=== PATIENT | male | born 1965 | race Caucasian/White ===

== ENCOUNTER 2020-09-03 11:32 | Emergency (ER) | payer OTHER ==
[~2020-09-03] VITALS: Ht 167.6 cm; Wt 90.7 kg
[2020-09-03] MEDS ORDERED: LORAZEPAM INJ 2 MG/ML VIAL IM ONE (12:00)
[2020-09-03] MEDS ORDERED: OLANZAPINE 10 MG VIAL IM ONE ×6 (12:00→23:50)
[2020-09-03] MEDS ORDERED: LORAZEPAM INJ 2 MG/ML VIAL ONE (12:04)
--- NOTE | 2020-09-03 12:07 | NUR ---
GIL AND [employer] ON RESTRAINTS FROM [facility]. TO ER BED 14. AGITATED, TALKING IN NON SENSE. BROUGHT IN FOR DANGER OT OTHER AND ON 5150 HOLD D/T PT THREW A CHAIR AT THE STAFF WHERE HE IS RESIDING. HOLD IS WRITTEN ON 09/03/20 @ 1130 BY [employer]. PT IS KEPT ON RESTRAINT FOR SAFETY. WITH SITTER AT BEDSIDE. ALL HAZARDS WERE REMOVED FROM THE AREA OF THE PT. WAS AT THE BEDSIDE FOR EVAL.
[2020-09-03 12:34] LABS: BASOPHILS # (AUTO) 0.1 /CMM (0.0-0.2); BASOPHILS % (AUTO) 1.1 % (0.0-2.0); EOSINOPHILS % (AUTO) 1.7 % (0.0-6.0); HEMATOCRIT 41 % (39-51); HEMOGLOBIN 13.7 g/dL (13.5-17.5); LYMPHOCYTES # (AUTO) 1.9 /CMM (0.8-4.8); LYMPHOCYTES % (AUTO) 26.3 % (20.0-44.0); MEAN CORPUSCULAR HGB CONC 34 g/dl (31.0-36.0); MEAN CORPUSCULAR VOLUME 91 fL (80-96); MONOCYTES # (AUTO) 0.5 /CMM (0.1-1.30); MONOCYTES % (AUTO) 7.2 % (2.0-12.0); NEUTROPHILS # (AUTO) 4.5 /CMM (1.8-8.9); NEUTROPHILS % (AUTO) 63.7 % (43.0-81.0); PLATELET COUNT (AUTO) 541 /CMM (150-450); RED BLOOD CELL COUNT(AUTO) 4.47 MIL/uL (4.5-6.0); WHITE BLOOD COUNT (AUTO) 7.1 K/uL (4.3-11.0)
[2020-09-03 12:45] LABS: CALCIUM, SERUM 9.3 mg/dL (8.5-10.1); CARBON DIOXIDE 25 mmol/L (21-32); CHLORIDE 99 mmol/L (98-107); CREATININE 0.8 mg/dL (0.6-1.3); GLUCOSE 99 mg/dL (74-106); POTASSIUM 4.1 mmol/L (3.5-5.1); SODIUM SERUM 134 mmol/L (136-145); UREA NITROGEN, BLOOD 9 mg/dL (7-18)
[2020-09-03 12:51] LABS: ACETAMINOPHEN 0 ug/ml (10-30); ALANINE AMINOTRANSFERASE 41 U/L (12-78); ALBUMIN 3.4 g/dL (3.4-5.0); ALCOHOL, BLOOD < 3 mg/dL (0-0); ALKALINE PHOSPHATASE 110 U/L (46-116); ASPARTATE AMINOTRANSFERASE 40 U/L (15-37); BILIRUBIN,DIRECT 0.1 mg/dL (0.0-0.2); BILIRUBIN,TOTAL 0.2 mg/dL (0.2-1.0); TOTAL PROTEIN, SERUM 7.8 g/dL (6.4-8.2)
[2020-09-03 15:38] LABS: BILIRUBIN,URINE Negative (NEGATIVE); COLOR,URINE YELLOW (YELLOW); LEUKOCYTE ESTERASE ,URINE Negative (NEGATIVE); NITRITE, URINE Negative (NEGATIVE); PH,URINE 7.5 (5.0-8.0); PROTEIN,URINE Negative (NEGATIVE); UGLUCOSE Negative (NEGATIVE); UROBILINOGEN,URINE 0.2 EU/dL (0.2)
--- NOTE | 2020-09-03 17:13 | NUR ---
CALLED LAB ABOUT RESULT OF COVID
--- NOTE | 2020-09-03 17:14 | NUR ---
RECEIVED RESULT FROM MAIN LAB: RAPID COVID NEGATIVE
[2020-09-03 18:31] LABS: BACTERIA,URINE Rare /HPF (None Seen); SQUAMOUS EPITHELIAL CELL,UR 0-2 /HPF (None Seen); WBC,URINE 0-2 /HPF (0-3)
--- NOTE | 2020-09-03 18:41 | NUR ---
FAMARTINEZ CHEN AT [facility] AND HOLD.
--- NOTE | 2020-09-03 21:02 | NUR ---
PT RESTING COMFORTABLY. REMAINS ON MONITOR. VSS.
--- NOTE | 2020-09-03 22:40 | NUR ---
PT NOW SLEEPING COMFORTABLY IN BED. VITAL SIGNS STABLE. PER VERBAL MD ORDER, WILL HOLD ZYPREXA 10MG IM AT THIS TIME
--- NOTE | 2020-09-04 04:22 | NUR ---
PT AWAKE IN BED, PROVIDED WITH BLANKETS.
--- NOTE | 2020-09-04 05:34 | NUR ---
PT AWAKE. TALKING TO HIMSELF AND INTERMITTENTLY YELLING INCOHERENTLY. MD AWARE. PT STILL ON MONITOR, WILL CONTINUE TO MONITOR
[2020-09-04] MEDS ORDERED: LORAZEPAM INJ 2 MG/ML VIAL ONE ×2 (05:36→10:30)
[2020-09-04] MEDS ORDERED: LORAZEPAM INJ 2 MG/ML VIAL IM ONE ×2 (06:00→10:30)
--- NOTE | 2020-09-04 06:41 | NUR ---
PER PRASANTH PT ACCEPTED TO [facility]. WILL CALL BACK WITH FURTHER INFORMATION.
--- NOTE | 2020-09-04 10:08 | NUR ---
RECIEVED A CALL FROM KILLIAN FROM [facility]. AT THE MOMENT STILL WAITING FOR BED OPENINGS SO WE SHOULD RECIEVE A CALL BACK IN 45 TO 1 HOUR. CALL BACK NUMBER. [phone].
[2020-09-04] MEDS ORDERED: diphenhydrAMINE HCL 50 MG/ML VIAL ONE (10:29)
[2020-09-04] MEDS ORDERED: HALOPERIDOL LACTATE INJ 5 MG/ML VIAL ONE (10:30)
[2020-09-04] MEDS ORDERED: HALOPERIDOL LACTATE INJ 5 MG/ML VIAL IM ONE (10:30)
[2020-09-04] MEDS ORDERED: diphenhydrAMINE HCL 50 MG/ML VIAL IM ONE (10:30)
--- NOTE | 2020-09-04 10:41 | NUR ---
PT SCREAMING & VERY AGITATED. MEDICATED PER ERMD ORDER. WILL CONT TO MONITOR.
[2020-09-04 11:15] VITALS: BP 127/69
--- NOTE | 2020-09-04 11:16 | NUR ---
PT ASLEEP, EASILY AWAKEN BY VERBAL STIMULI & WILL GO BACK TO SLEEP. RR EVEN & UNLABORED. NAD NOTED AT THIS TIME & WILL CONT TO MONITOR.
--- NOTE | 2020-09-04 11:32 | NUR ---
PATIENT IS ACCEPTED BY DR. TUCKER, WILL GO TO [facility] # FOR REPORT [phone].
--- NOTE | 2020-09-04 11:56 | NUR ---
[facility] ETA 1230
--- NOTE | 2020-09-04 12:52 | NUR ---
REPORT GIVEN TO JIMMY REICH FROM [facility].
--- NOTE | 2020-09-04 12:55 | NUR ---
REPORT GIVEN TO NAOMIE FOR SHY. PATIENT TRANSFERED TO [facility].
== END 2020-09-04 13:04 ==
LOC: ER 11:39
DX: F23 Brief psychotic disorder (principal); R45.1 Restlessness and agitation; I10 Essential (primary) hypertension; J44.9 Chronic obstructive pulmonary disease, unspecified; N40.0 Benign prostatic hyperplasia without lower urinary tract symptoms; M15.9 Polyosteoarthritis, unspecified; Z20.822 Contact with and (suspected) exposure to COVID-19
CPT/HCPCS: 36415; 80048; 80076; 80299; 80307; 80320; 81001; 85025; 87426; 96372 ×3; 99291; C9803; J1200; J1630; J2060 ×3; J3490 ×3; G0480